=== PATIENT | female | born 1955 | race Caucasian/White ===

== ENCOUNTER 2019-07-03 16:37 | Emergency (ER) | payer SELFPAY ==
[~2019-07-03] VITALS: Ht 167.6 cm; Wt 117.8 kg
--- NOTE | 2019-07-03 17:29 | PHYS DOC ---
Past History Past Medical History: Diabetes, Hypertension (WELLINGTON OJEDA DO) Past Medical History: Anemia, Constipation, Diabetes (PETEY EL MD) Past Surgical History: Cholecystectomy, , Hysterectomy (WELLINGTON OJEDA DO) Smoking: Non-smoker Alcohol Use: None Drug Use: None (WELLINGTON OJEDA DO) General Adult EDM: Chief Complaint: ABDOMINAL PAIN HPI: HPI: 63-year-old female presents with report of upper abdominal pain primarily to epigastric region which has been ongoing for past 3 days. Patient does report some associated nausea or diarrhea. Reports pain is cramping in nature. Denies fever or chills. Denies chest pain. Denies diarrhea. Denies trauma. Patient does report prior history of cholecystectomy. Denies known sick contacts. Denies known exposure to COVID-19. (WELLINGTON OJEDA DO) Review of Systems: Review of Systems: Constitutional: Denies fever or chills Eyes: Denies redness or eye pain HENT: Denies nasal congestion or sore throat Respiratory: Denies cough or shortness of breath Cardiovascular: Denies chest pain or palpitations GI: Reports abdominal pain and nausea; denies vomiting : Denies dysuria or hematuria Musculoskeletal: Denies back pain or joint pain Integument: Denies rash or skin lesions Neurologic: Denies headache, focal weakness or sensory changes Complete systems were reviewed and found to be within normal limits, except as documented in this note. (WELLINGTON OJEDA DO) Heart Score: HEART Score for Chest Pain: HEART Score for Chest Pain Response (Comments) Value History Slighlty/Non-Suspicious 0 ECG Nonspecific Repolarizatio 1 Age >45 - < 65 1 Risk Factors 1 or 2 Risk Factors 1 Troponin < Normal Limit 0 Total 3 Current Medications: Current Meds: Current Medications Medications (Trade) Dose Ordered Sig/Soha Start Time Stop Time Status Last Admin Dose Admin Famotidine (Pepcid Vial) 20 mg 1X ONCE 07/03/19 17:30 07/03/19 17:31 UNV Iohexol (Omnipaque 300 Mg/ml) 75 ml 1X ONCE 07/03/19 17:30 07/03/19 17:31 UNV Ondansetron HCl (Zofran) 4 mg 1X ONCE 07/03/19 17:30 07/03/19 17:31 UNV Sodium Chloride 1,000 ml @ 1,000 mls/hr 1X ONCE 07/03/19 17:30 07/03/19 18:29 UNV (WELLINGTON OJEDA DO) Allergies: Allergies: Allergies Coded Allergies Type Severity Reaction Last Updated Verified No Known Drug Allergies 01/23/13 No (WELLINGTON OJEDA DO) Physical Exam: PE: Constitutional: Well developed, well nourished, no acute distress, non-toxic appearance HENT: Normocephalic, atraumatic Eyes: Conjunctiva normal, no discharge Neck: Normal range of motion, no tenderness, supple Cardiovascular: Heart rate normal, regular rhythm Lungs & Thorax: Bilateral breath sounds clear to auscultation, no wheezing Abdomen: Soft, epigastric tenderness, no guarding/rebound tenderness Skin: Warm, dry, no erythema, no rash Back: No tenderness, no CVA tenderness Extremities: No tenderness, ROM intact, no edema Neurologic: Alert and oriented X 3, no focal deficits noted Psychologic: Affect normal, judgment normal (WELLINGTON OJEDA DO) EKG: EKG: @1724 NSR at 83bpm, NO ST elevation, QRS 86ms, QT/QTc 376/448ms (WELLINGTON OJEDA DO) Radiology/Procedures: Radiology/Procedures: [] (WELLINGTON OJEDA DO) Radiology/Procedures: [address] [address] IMAGING REPORT Signed PATIENT: FLAQUTIO THURSTON ACCOUNT: [id number] : 1955 LOCATION: ER AGE: 63 SEX: F EXAM STATUS: REG ER ORD. PHYSICIAN: WELLINGTON OJEDA DO REASON: upper abdominal pain, nausea PROCEDURE: CT ABD PELV W/ IV CONTRST ONLY CT abdomen pelvis with contrast dated 07/03/2019. No comparison available. CLINICAL INDICATION: Upper abdominal pain nausea vomiting for one day. TECHNIQUE: Contiguous axial imaging the abdomen and pelvis performed after the administration of 60 cc Isovue-370. One or more of the following individualized dose reduction techniques were utilized for this examination: 1. Automated exposure control 2. Adjustment of the mA and/or kV according to patient size 3. Use of iterative reconstruction technique. FINDINGS: Limited images of the lung bases are clear. Heart size within normal limits. No pleural or pericardial effusion. Liver, spleen, pancreas, adrenal glands unremarkable. The gallbladder is surgically absent. Kidneys are symmetric in size and enhancement. No hydronephrosis. Small bowel is mildly dilated and fluid-filled. There is also markedly dilated fluid-filled colon to the level of the hepatic flexure/proximal transverse colon where there is a focal area of wall thickening and luminal narrowing with adjacent enlarged lymph nodes measuring up to 8 mm short axis. This best seen on coronal image 17 and axial images 43 through 47. The distal colon is collapsed. There is some mild hazy inflammatory stranding in the paracolonic fat near the cecum with associated mild wall thickening. The appendix is not clearly identified. There is a small nodular focus near the cecal tip with adjacent calcifications or surgical clips. No retroperitoneal or mesenteric lymphadenopathy. Images of pelvis show nondistended urinary bladder. The uterus is surgically absent. No lymphadenopathy. Trace amount of free fluid in the right lower quadrant.. There are a few scattered diverticula within the distal colon. Bone windows show no acute findings. Multilevel spondylosis. IMPRESSION: 1. Dilated fluid-filled loops of distal small bowel and colon with focal area of transition near the hepatic flexure. Findings are suspicious for colonic neoplasm or inflammatory stricture. Recommend colonoscopy for better evaluation. 2. There are mildly enlarged lymph nodes near the area of transition which could be related to localized metastatic lymph node spread or inflammatory process. 3. Status post cholecystectomy and appendectomy. There is a small nodular focus of increased density near the cecal tip which could be postsurgical scarring. Correlate clinically. 4. Small amount of free pelvic fluid. Electronically signed by: Wellington Pryor MD (07/03/2019 6:18 PM) [facility] DICTATED AND SIGNED BY: WELLINGTON PRYOR MD DATE: 07/03/191817 CC: STEPHANIE CASTRO MD; WELLINGTON OJEDA DO ~ [address] [address] IMAGING REPORT Signed PATIENT: FLAQUITO THRUSTON ACCOUNT: [id number] : 1955 LOCATION: ER AGE: 63 SEX: F EXAM STATUS: REG ER ORD. PHYSICIAN: WELLINGTON OJEDA DO REASON: upper abdominal pain, nausea PROCEDURE: CT ABD PELV W/ IV CONTRST ONLY CT abdomen pelvis with contrast dated 07/03/2019. No comparison available. CLINICAL INDICATION: Upper abdominal pain nausea vomiting for one day. TECHNIQUE: Contiguous axial imaging the abdomen and pelvis performed after the administration of 60 cc Isovue-370. One or more of the following individualized dose reduction techniques were utilized for this examination: 1. Automated exposure control 2. Adjustment of the mA and/or kV according to patient size 3. Use of iterative reconstruction technique. FINDINGS: Limited images of the lung bases are clear. Heart size within normal limits. No pleural or pericardial effusion. Liver, spleen, pancreas, adrenal glands unremarkable. The gallbladder is surgically absent. Kidneys are symmetric in size and enhancement. No hydronephrosis. Small bowel is mildly dilated and fluid-filled. There is also markedly dilated fluid-filled colon to the level of the hepatic flexure/proximal transverse colon where there is a focal area of wall thickening and luminal narrowing with adjacent enlarged lymph nodes measuring up to 8 mm short axis. This best seen on coronal image 17 and axial images 43 through 47. The distal colon is collapsed. There is some mild hazy inflammatory stranding in the paracolonic fat near the cecum with associated mild wall thickening. The appendix is not clearly identified. There is a small nodular focus near the cecal tip with adjacent calcifications or surgical clips. No retroperitoneal or mesenteric lymphadenopathy. Images of pelvis show nondistended urinary bladder. The uterus is surgically absent. No lymphadenopathy. Trace amount of free fluid in the right lower quadrant.. There are a few scattered diverticula within the distal colon. Bone windows show no acute findings. Multilevel spondylosis. IMPRESSION: 1. Dilated fluid-filled loops of distal small bowel and colon with focal area of transition near the hepatic flexure. Findings are suspicious for colonic neoplasm or inflammatory stricture. Recommend colonoscopy for better evaluation. 2. There are mildly enlarged lymph nodes near the area of transition which could be related to localized metastatic lymph node spread or inflammatory process. 3. Status post cholecystectomy and appendectomy. There is a small nodular focus of increased density near the cecal tip which could be postsurgical scarring. Correlate clinically. 4. Small amount of free pelvic fluid. Electronically signed by: Wellington Pryor MD (07/03/2019 6:18 PM) [facility] DICTATED AND SIGNED BY: WELLINGTON PRYOR MD DATE: 07/03/191817 CC: STEPHANIE CASTRO MD; WELLINGTON OJEDA DO ~ (PETEY EL MD) Course & Med Decision Making: Course & Med Decision Making Pertinent Labs and Imaging studies reviewed. (See chart for details) Patient with upper abdominal pain with associated nausea x3 days presents for evaluation. Abdomen non-peritoneal. History of prior cholecystectomy. EKG stable. Labs obtained and pending. CT abdomen/pelvis pending. Signout given to Dr. El for further evaluation and final disposition. Discussed current findings and plan with patient, who acknowledges understanding and agreement. (WELLINGTON OJEDA DO) Course & Med Decision Making Discussed presentation, testing and tx plan with Dr. Porter and Dr. Brush. Transfer to [facility] for further eval. Pt. to be NPO. Enemas. Impression: 1. Abdomen Pain 2. Constipation 3. Bowel Obstruction/ Ileus- appears distal Small bowel/ Proximal Colon ( Adenopathy at Transition area) 4. Hypomagnesium 1.7 5. Elevated AST 54/Alk Phos 128 6. Anemia- Microcytic Hypochromic Hgb10.2 MCV 64, H 19 7. DM - gluc 368 8. Elev. Creat., 1,1 9. Lactic Acid= 1.8 (PETEY EL MD) Dragon Disclaimer: Dragon Disclaimer: This electronic medical record was generated, in whole or in part, using a voice recognition dictation system. (WELLINGTON OJEDA DO) Departure Departure: Impression: Primary Impression: Abdominal pain Qualified Codes: R10.10 - Upper abdominal pain, unspecified Disposition: HOME/RESIDENCE PRIOR TO ADM Condition: STABLE Referrals: STEPHANIE CASTRO MD (PCP) WELLINGTON OJEDA DO July 03, 2019 17:29 PETEY EL MD July 03, 2019 18:41
[2019-07-03] MEDS ORDERED: FAMOTIDINE 20 MG/2 ML VIAL IVP ONE (17:30)
[2019-07-03] MEDS ORDERED: ONDANSETRON PF 4 MG/2 ML VIAL. IVP ONE (17:30)
[2019-07-03] MEDS ORDERED: IOHEXOL 300 MG/ML 75 ML VIAL. IV ONE (17:30)
[2019-07-03] MEDS ORDERED: IV NORMAL SALINE 1,000ML 1,000 ML IV ONE (17:30)
[2019-07-03 17:34] LABS: BASO % 1 % (0-3); EOS % 0 % (0-3); HEMATOCRIT 34.3 % (36.0-47.0); HEMOGLOBIN 10.2 g/dL (12.0-15.5); LYMPH # 1.3 x10^3/uL (1.0-4.8); LYMPH % 14 % (24-48); MEAN CORPUSCULAR HEMOGLOBIN 19 pg (25-35); MEAN CORPUSCULAR HGB CONC 30 g/dL (31-37); MEAN CORPUSCULAR VOLUME 64 fL (79-100); MONO # 0.6 x10^3/uL (0.0-1.1); MONO % 6 % (0-9); NEUT # 7.7 x10^3uL (1.8-7.7); NEUT % 80 % (31-73); PLATELET COUNT 307 x10^3/uL (140-400); RED BLOOD COUNT 5.39 x10^6/uL (3.50-5.40); RED CELL DISTRIBUTION WIDTH 19.3 % (11.5-14.5); WHITE BLOOD COUNT 9.6 x10^3/uL (4.0-11.0)
[2019-07-03 17:43] LABS: ANION GAP 14 (6-14); BLOOD UREA NITROGEN 10 mg/dL (7-20); BUN/CREATININE RATIO 9 (6-20); CALCIUM 9.7 mg/dL (8.5-10.1); CARBON DIOXIDE 23 mmol/L (21-32); CHLORIDE 98 mmol/L (98-107); CREATININE 1.1 mg/dL (0.6-1.0); GFR 50.3; GLUCOSE 368 mg/dL (70-99); POTASSIUM 4.7 mmol/L (3.5-5.1); SODIUM 135 mmol/L (136-145)
[2019-07-03 17:57] LABS: ALBUMIN 3.3 g/dL (3.4-5.0); ALBUMIN/GLOBULIN RATIO 0.7 (1.0-1.7); ALK PHOS 128 U/L (46-116); ALT (SGPT) 56 U/L (14-59); AST (SGOT) 54 U/L (15-37); LIPASE 100 U/L (73-393); MAGNESIUM 1.7 mg/dL (1.8-2.4); TOTAL BILIRUBIN 0.6 mg/dL (0.2-1.0); TOTAL PROTEIN 8.2 g/dL (6.4-8.2)
[2019-07-03 17:59] LABS: BACTERIA,URINE MANY /HPF (0-FEW); BILIRUBIN,URINE NEG (NEG); CLARITY,URINE TURBID; COLOR,URINE YELLOW; GLUCOSE,URINE 500 mg/dL (NEG); NITRITE,URINE NEG (NEG); SQUAMOUS EPITHELIAL CELL,UR MANY /LPF; UROBILINOGEN,URINE 0.2 mg/dL (0.2 mg/dL); WBC,URINE >40 /HPF (0-4)
--- NOTE | 2019-07-03 18:21 | RAD ---
CT abdomen pelvis with contrast dated 07/03/2019. No comparison available. CLINICAL INDICATION: Upper abdominal pain nausea vomiting for one day. TECHNIQUE: Contiguous axial imaging the abdomen and pelvis performed after the administration of 60 cc Isovue-370. One or more of the following individualized dose reduction techniques were utilized for this examination: 1. Automated exposure control 2. Adjustment of the mA and/or kV according to patient size 3. Use of iterative reconstruction technique. FINDINGS: Limited images of the lung bases are clear. Heart size within normal limits. No pleural or pericardial effusion. Liver, spleen, pancreas, adrenal glands unremarkable. The gallbladder is surgically absent. Kidneys are symmetric in size and enhancement. No hydronephrosis. Small bowel is mildly dilated and fluid-filled. There is also markedly dilated fluid-filled colon to the level of the hepatic flexure/proximal transverse colon where there is a focal area of wall thickening and luminal narrowing with adjacent enlarged lymph nodes measuring up to 8 mm short axis. This best seen on coronal image 17 and axial images 43 through 47. The distal colon is collapsed. There is some mild hazy inflammatory stranding in the paracolonic fat near the cecum with associated mild wall thickening. The appendix is not clearly identified. There is a small nodular focus near the cecal tip with adjacent calcifications or surgical clips. No retroperitoneal or mesenteric lymphadenopathy. Images of pelvis show nondistended urinary bladder. The uterus is surgically absent. No lymphadenopathy. Trace amount of free fluid in the right lower quadrant.. There are a few scattered diverticula within the distal colon. Bone windows show no acute findings. Multilevel spondylosis. IMPRESSION: 1. Dilated fluid-filled loops of distal small bowel and colon with focal area of transition near the hepatic flexure. Findings are suspicious for colonic neoplasm or inflammatory stricture. Recommend colonoscopy for better evaluation. 2. There are mildly enlarged lymph nodes near the area of transition which could be related to localized metastatic lymph node spread or inflammatory process. 3. Status post cholecystectomy and appendectomy. There is a small nodular focus of increased density near the cecal tip which could be postsurgical scarring. Correlate clinically. 4. Small amount of free pelvic fluid. Electronically signed by: Wellington Pryor MD (07/03/2019 6:18 PM) [facility]
--- NOTE | 2019-07-03 18:32 | EKG ---
[address] [address] Test Date: 2019-07-03 Test Time: 17:24:26 Pat Name: FLAQUITO THURSTON Department: Room: Gender: F [employer] Representative [employer]: : 1955 Requested By: CASSIE OJEDA Order Number: [id number] Reading MD: Moody Carroll Measurements Intervals Leon Rate: 83 P: 36 NV: 130 QRS: 12 QRSD: 86 T: 17 QT: 376 QTc: 448 Interpretive Statements SINUS RHYTHM Electronically Signed On 07-04-2019 15:50:15 CDT by Moody Carroll
[2019-07-03 18:51] LABS: ANISOCYTOSIS MOD; HYPOCHROMIA MOD; MICROCYTOSIS MOD; PLT ESTIMATE ADEQUATE (ADEQUATE)
[2019-07-03] MEDS ORDERED: MAGNESIUM HYDROXIDE 2,400 MG/30 ML ORAL.SUSP. PO ONE (19:45)
[2019-07-03] MEDS ORDERED: IV RINGERS SOLUTION,LACTATED 1,000 ML IV ONE (20:00)
[2019-07-03] MEDS ORDERED: INSULIN REGULAR 100 UNIT/ML 3ML VIAL. IV ONE (20:00)
[2019-07-03] MEDS ORDERED: INSULIN REGULAR VIAL 100 UNIT in IV NORMAL SALINE 100ML 100 ML IV ONE (20:00)
[2019-07-03 20:34] VITALS: BP 166/86
== END 2019-07-03 21:18 | disposition short-term general hospital (02) ==
LOC: ER 16:37
DX: K59.00 Constipation, unspecified (principal); E83.42 Hypomagnesemia; R74.8 Abnormal levels of other serum enzymes; D50.9 Iron deficiency anemia, unspecified; E11.9 Type 2 diabetes mellitus without complications; R74.0 Nonspecific elevation of levels of transaminase and lactic acid dehydrogenase [LDH]; R79.89 Other specified abnormal findings of blood chemistry; I10 Essential (primary) hypertension; R19.7 Diarrhea, unspecified; Z86.2 Personal history of diseases of the blood and blood-forming organs and certain disorders involving the immune mechanism; Z90.49 Acquired absence of other specified parts of digestive tract; Z90.710 Acquired absence of both cervix and uterus; Z98.890 Other specified postprocedural states
CPT/HCPCS: 36415; 74177; 80053; 81001; 82553; 82947; 83605; 83690; 83735; 84484; 85025; 85610; 85730; 87086; 93005; 96361; 96374; 96375; 99285; J1815; J2405; J3490; J7120; J7030

== ENCOUNTER 2020-06-09 02:25 | Emergency (ER) | payer OTHER ==
[~2020-06-09] VITALS: Ht 167.6 cm; Wt 117.8 kg
--- NOTE | 2020-06-09 02:41 | PHYS DOC ---
Past History Past Medical History: Anemia, Constipation, Diabetes Past Surgical History: Cholecystectomy, , Hysterectomy Past Surgical History Rt. ankle- surgery Smoking: Non-smoker Alcohol Use: None Drug Use: None General Adult HPI: HPI: "I was mopping Wed.. and fell on this Rt. hip... then tonight.. I was throwing out a pepper.. That had gone bad.... and it dropped some juice on the floor... And I accidentally stepped on it and fell injuring this right knee..... This is two falls in less than 3 days.. " " This is same leg I fracture the ankle in.. and had surgery..." Patient is a 64 year old female who presents with Rt. knee pain complaints after slip and fall.. Pt. also complaints of Rt. hip pain after slip and fall earlier this week on Wed. Pt. has obvious swelling in the right knee and tib- fib area. Patient has point hip tenderness on right. Patient is moderately able to do a straight leg lift on right leg with somewhat significant pain. Collateral ligaments appear to be stable. Anterior and posterior cruciates. To be generally stable. Distal neurovascular is equal to left foot. Patient denies other injury of the falls x2 this past week. Patient denies any changes in meds. No recent travel. No specific ill contacts. No history of depression. Patient on follow-up with Dr. Castro. Review of Systems: Review of Systems: Constitutional: Denies fever or chills Eyes: Denies change in visual acuity HENT: Denies nasal congestion or sore throat Respiratory: Denies cough or shortness of breath Cardiovascular: Denies chest pain or edema GI: Denies abdominal pain, nausea, vomiting, bloody stools or diarrhea : Denies dysuria Musculoskeletal: Hx. of falls, with injury to Rt. hip and knee Integument: Denies rash Neurologic: Denies headache, focal weakness or sensory changes Endocrine: Denies polyuria or polydipsia Lymphatic: Denies swollen glands Psychiatric: Denies depression or anxiety Family History: Family History: Noncontributory presentation Current Medications: Current Meds: See nursing for home meds Allergies: Allergies: Allergies Coded Allergies Type Severity Reaction Last Updated Verified No Known Drug Allergies 01/23/13 No Physical Exam: PE: Constitutional: in acute distress, non-toxic appearance. [] HENT: Normocephalic, atraumatic, bilateral external ears normal, oropharynx moist, no oral exudates, nose normal. [] Eyes: PERRLA, EOMI, conjunctiva normal, no discharge. [] Neck: Normal range of motion, no tenderness, supple, no stridor. [] Cardiovascular:Heart rate regular rhythm, no murmur [] Lungs & Thorax: Bilateral breath sounds equal at apex auscultation [] Abdomen: Bowel sounds normal, soft, no tenderness, no masses, no pulsatile masses. Obese. Old scar. Skin: Warm, dry, no erythema, no rash. [] Back: No tenderness, no CVA tenderness. [] Extremities: No tenderness, no cyanosis, no clubbing, ROM intact, bilateral edema. [] Except findings and right hip and knee as per HPI. Old surgery scar right ankle Neurologic: Alert and oriented X 3, normal motor function, normal sensory function, no focal deficits noted. [] Psychologic: Affect anxious, judgement normal, mood normal. [] EKG: EKG: [] Radiology/Procedures: Radiology/Procedures: [][place] [address] IMAGING REPORT Signed PATIENT: FLAQUITO THURSTON ACCOUNT: [id number] : 1955 LOCATION: ER AGE: 64 SEX: F EXAM STATUS: REG ER ORD. PHYSICIAN: PETEY LI MD REASON: fall PROCEDURE: TIBIA FIBULA RIGHT INDICATION: Reason: fall / Spl. Instructions: / History: COMPARISON: None. IMPRESSION: Right lower le views obtained. Plate and screws at the distal fibula. Screws at the distal tibia. Osseous excrescence or callus formation between the distal tibia and fibula. Degenerative changes of the partially visualized ankle and foot with chronic appearing deformities. A definite acute fracture of the tibia and fibula not seen. Right knee: 4 views obtained. Degenerative changes of the right knee with osteophyte formation as well as joint space narrowing including at medial compartment. No evidence of dislocation. Large joint effusion with mixed density which could be from lipohemarthrosis. This raises the concern for either soft t issue injury involving the knee or occult fracture. Right hip: 3 views of pelvis and right hip. Degenerative changes of partially visualized lower lumbar spine with osteophyte formation. Calcifications in the pelvis which can be seen with phleboliths. Degenerative changes of the right greater than left hip with osteophyte formation as well as joint space narrowing and subchondral sclerosis. No evidence of dislocation at the hips. No definite fracture right hip. Electronically signed by: Toña Guthrie MD (06/09/2020 4:32 AM) [id number] DICTATED AND SIGNED BY: TOÑA GUTHRIE MD DATE: 06/09/20 0424 CC: STEPHANIE CASTRO MD; PETEY LI MD ~MTH0 0 Heart Score: C/O Chest Pain: N/A Risk Factors: Risk Factors: DM, Current or recent (<one month) smoker, HTN, HLP, family history of CAD, obesity. Risk Scores: Score 0 - 3: 2.5% MACE over next 6 weeks - Discharge Home Score 4 - 6: 20.3% MACE over next 6 weeks - Admit for Clinical Observation Score 7 - 10: 72.7% MACE over next 6 weeks - Early Invasive Strategies Course & Med Decision Making: Course & Med Decision Making Pertinent Labs and Imaging studies reviewed. (See chart for details) Ice packs as needed. Elevate leg. Wear Chirag wrap. Use walker. Take Tylenol and ibuprofen for pain. For marked pain may take Vicoprofen up to 4 times a day. Recommend follow-up with [facility]. Return if any concerns. Constantino-ray knee in 2 weeks if persistent pain. No definitive displaced fracture noted at this time but with the amount of edema and arthritic changes there may be a fracture not currently visualized. Impression: 1. Falling 2. Knee and Hip Contusions [] Dragon Disclaimer: Dragon Disclaimer: This electronic medical record was generated, in whole or in part, using a voice recognition dictation system. Departure Departure: Referrals: STEPHANIE CASTRO MD (PCP) Scripts Hydrocodone/Ibuprofen (HYDROCODONE-IBUPROFEN 7.5-200 ) 1 Each Tablet 1 TAB PO PRN Q6HRS PRN for PAIN, #30 TAB 0 Refills Prov: PETEY LI MD 06/09/20 Dragon Disclaimer This chart was dictated in whole or in part using Voice Recognition software in a busy, high-work load, and often noisy Emergency Department environment. It may contain unintended and wholly unrecognized errors or omissions. PETEY LI MD June 09, 2020 02:41
[2020-06-09 02:55] VITALS: BP 187/92
[2020-06-09] MEDS ORDERED: MORPHINE SULFATE 10 MG/ML SYRINGE. SQ ONE (03:00)
--- NOTE | 2020-06-09 04:35 | RAD ---
INDICATION: Reason: fall / Spl. Instructions: / History: COMPARISON: None. IMPRESSION: Right lower le views obtained. Plate and screws at the distal fibula. Screws at the distal tibia. Osseous excrescence or callus formation between the distal tibia and fibula. Degenerative changes of the partially visualized ankle and foot with chronic appearing deformities. A definite acute fractur e of the tibia and fibula not seen. Right knee: 4 views obtained. Degenerative changes of the right knee with osteophyte formation as wel l as joint space narrowing including at medial compartment. No evidence of dislocation. Large joint e ffusion with mixed density which could be from lipohemarthrosis. This raises the concern for either s oft tissue injury involving the knee or occult fracture. Right hip: 3 views of pelvis and right hip. Degenerative changes of partially visualized lower lumbar spine with osteophyte formation. Calcifications in the pelvis which can be seen with phleboliths. De generative changes of the right greater than left hip with osteophyte formation as well as joint spac e narrowing and subchondral sclerosis. No evidence of dislocation at the hips. No definite fracture r ight hip. Electronically signed by: Franko Sanchez MD (06/09/2020 4:32 AM) [id number]
[2020-06-09] MEDS ORDERED: HYDR-1179 PO (04:44)
== END 2020-06-09 05:11 | disposition home or self-care (01) ==
LOC: ER 02:25
DX: S80.01XA Contusion of right knee, initial encounter (principal); S70.01XA Contusion of right hip, initial encounter; E11.9 Type 2 diabetes mellitus without complications; Z86.2 Personal history of diseases of the blood and blood-forming organs and certain disorders involving the immune mechanism; W01.0XXA Fall on same level from slipping, tripping and stumbling without subsequent striking against object, initial encounter; Y93.89 Activity, other specified; Y92.89 Other specified places as the place of occurrence of the external cause; Y99.8 Other external cause status
CPT/HCPCS: 73502; 73564; 73590; 96372; 99284; J2270